=== PATIENT | female | born 1995 | race Caucasian/White ===

== ENCOUNTER 2019-01-17 15:53 | Emergency (ER) | payer OTHER ==
--- OUTSIDE RECORDS SUMMARY | 2019-01-17 16:14 | XMS REPORT | Continuity of Care Document ---
:1995 External Reference #:[id number] Author Name Araseli Watts MS, FEED GRINDER-C, CNM (transmitted by agent of provider Tyesha Chaney) Address [address] [place] [address] Care Team Providers Name Role Phone Judd Ferris-MD [place] - Obstetrics & Care Team Information Dynamotor Repairer [phone] Gynecology Deysi March MD - Internal Medicine Care Team Information Dynamotor Repairer Casey Inman MD - Obstetrics & Care Team Information Dynamotor Repairer [phone] Gynecology Problems Description No Information Available Social History Type Date Description Comments Sex Unknown Tobacco Use Start: Unknown current cigarette currently smoking x smoker 10 years. Smoking Status Reviewed: 01/11/19 current cigarette currently smoking x smoker 10 years. ETOH Use Currently consumes alcohol socially Tobacco Use Start: Unknown Patient is a current 1/2 ppd smoker, smokes every day Recreational Drug Use Current Drug User marijuana Allergies, Adverse Reactions, Alerts Description No Known Drug Allergies Medications Active Medications SIG Qnty Indications Ordering Date Provider Buspirone HCL take one tablet 60tabs F43.23 Deysi March, 09/04/2018 5mg Tablets by mouth twice MD a day for anxiety as needed Wellbutrin XL Take one every 30tabs F43.23 Jumana Marcha, 08/20/2018 150mg Tablets ER day MD 24HR Medroxyprogesterone Inject Once as Casey Inman MD Acetate Directed 150mg/ml Suspension Medications Administered in Office Medication SIG Qnty Indications Ordering Provider Date PPD Araseli Watts MS, 08/20/2018 Injection FEED GRINDER-C, CNM Immunizations Description No Information Available Vital Signs Date Vital Result Comment 01/11/2019 11:27am BP Systolic Sitting Right Arm 112 mmHg BP Diastolic Sitting Right Arm 60 mmHg Body Temperature 97.7 F Heart Rate 95 /min Respiratory Rate 18 /min Height 64.75 inches 5'4.75" Weight 149.00 lb BMI (Body Mass Index) 25.0 kg/m2 BSA (Body Surface Area) 1.74 m2 [place] body weight in kilograms 56 kg O2 % BldC Oximetry 98 % ra 09/04/2018 1:07pm BP Systolic Sitting Right Arm 110 mmHg BP Diastolic Sitting Right Arm 64 mmHg Body Temperature 98.2 F Heart Rate 88 /min Respiratory Rate 16 /min Height 64.75 inches 5'4.75" Weight 144.00 lb BMI (Body Mass Index) 24.1 kg/m2 BSA (Body Surface Area) 1.72 m2 [place] body weight in kilograms 56 kg O2 % BldC Oximetry 98 % Ra Results Test Acquired Date Facility Test Result H/L Range Note CBC 01/04/2019 [facility] White Blood 13.1 K/uL High 3.1-10.7 1 W/Automated [address] Count Diff [place], [place] [id number] [phone] Red Blood Count 4.83 M/uL Normal 3.90-5.40 Hemoglobin 13.5 gm/dL Normal 11.6-15.8 Hematocrit 41.6 % Normal 36.0-46.1 Mean Cell Volume 86.1 fl Normal 80.9-99.0 Mean Corpuscular HGB 28.0 pg Normal 25.9-32.7 Mean Corpuscular HGB Conc 32.5 g/dL Normal 30.8-34.3 Platelet Count 484 K/uL High 155-360 Red Cell Distri Width SD 40.0 fl Normal 36-47 Red Cell Distri Width %CV 12.9 % Normal 11.7-14.4 Mean Platelet Volume 9.7 fl Normal 8.9-12.4 Neut% 61.0 % Normal 40.4-72.8 Lymph % 27.2 % Normal 20.0-42.0 [place] % 7.5 % Normal 4.3-13.2 Eo% 3.0 % Normal 0.0-6.6 Bas% 0.6 % Normal 0.0-1.1 Immature Grans 0.7 % Normal 0.0-5.0 NRBC % 0.0 /100WBC < 10/ 100 WBC Neut# 8.01 K/uL High 1.8-7.0 Lymph # 3.57 K/uL Normal 1.0-4.0 [place] # 0.98 K/uL High 0.3-0.9 Eos # 0.40 K/uL Normal 0.0-0.5 Baso # 0.08 K/uL Normal 0.0-0.1 Immature Grans Absolute 0.09 K/uL NRBC # 0.00 K/uL CBC W/Automated 08/23/2018 [facility] White Blood 12.1 K/uL High 3.1-10.7 [address] [place] [address] [phone] Red Blood Count 4.60 M/uL Normal 3.90-5.40 Hemoglobin 12.9 gm/dL Normal 11.6-15.8 Hematocrit 38.9 % Normal 36.0-46.1 Mean Cell Volume 84.6 fl Normal 80.9-99.0 Mean Corpuscular HGB 28.0 pg Normal 25.9-32.7 Mean Corpuscular HGB Conc 33.2 g/dL Normal 30.8-34.3 Platelet Count 449 K/uL High 155-360 Red Cell Distri Width SD 41.7 fl Normal 36-47 Red Cell Distri Width %CV 13.5 % Normal 11.7-14.4 Mean Platelet Volume 9.6 fl Normal 8.9-12.4 Neut% 55.8 % Normal 40.4-72.8 Lymph % 33.1 % Normal 20.0-42.0 [place] % 8.3 % Normal 4.3-13.2 Eo% 1.9 % Normal 0.0-6.6 Bas% 0.4 % Normal 0.0-1.1 Immature Grans 0.5 % Normal 0.0-5.0 NRBC % 0.0 /100WBC < 10/ 100 WBC Neut# 6.76 K/uL Normal 1.8-7.0 Lymph # 4.01 K/uL High 1.0-4.0 [place] # 1.00 K/uL High 0.3-0.9 Eos # 0.23 K/uL Normal 0.0-0.5 Baso # 0.05 K/uL Normal 0.0-0.1 Immature Grans Absolute 0.06 K/uL NRBC # 0.00 K/uL Comprehensive 08/23/2018 [facility] Glucose 103 mg/dL Normal 74-106 Metabolic Panel [address] [place], [place] [id number] [phone] BUN 13 mg/dL Normal 7-18 Creatinine 0.8 mg/dL Normal 0.6-1.3 Glom Filtration Rate, Estimate >60 mL/min >60 If >60 mL/min >60 3 BUN/Creat 16.2 ratio Sodium 140 mmol/L Normal 136-145 Potassium 3.9 mmol/L Normal 3.5-5.1 Chloride 112 mmol/L High 98-107 Carbon Dioxide 20 mmol/L Low 21-32 Anion Gap 8 mEq/L Normal 8-16 Calcium 9.0 mg/dL Normal 8.5-10.1 Total Protein 8.2 g/dL Normal 6.4-8.2 Albumin 4.0 g/dL Normal 3.4-5.0 Globulin 4.2 g/dL Normal 1.9-4.3 Alb/Glob 1.0 ratio Bilirubin,Total 0.2 mg/dL Normal 0.2-1.0 Sgot/Ast 14 U/L Low 15-37 4 SGPT/Alt 49 U/L Normal 12-78 Alkaline Phosphatase 100 U/L Normal 45-117 Reflex add FT3? N Reflex add FT4? Y TSH Reflex 08/23/2018 [facility] Thyroid Stim 1.40 uIU/mL Normal 0.30-4.20 FT4 And/Or [address] Hormone FT3 [place] [address] [phone] Reflex add FT3? N Reflex add FT4? Y Laboratory 08/23/2018 [facility] Vitamin 42.2 30.0-100.0 5 test finding [address] D,25-Hydroxy ng/[place] [address] [phone] Vitamin B12 08/23/2018 [facility] Vitamin B12 359 Normal 193-9[address] pg/[place] [address] [phone] Folic Acid 7.8 ng/mL Normal 3.1-17.5 Reflex add FT3? N Reflex add FT4? Y 1 D72.829 2 Z00.00, F43.23 3 Note: Persistent reduction for 3 months or more in an eGFR <60 mL/min/1.73 m2 defines CKD. Patients with eGFR values >/=60 mL/min/1.73 m2 may also have CKD if evidence of persistent proteinuria is present. The original MDRD equation for estimated GFR is not valid for patients less than 18 years of age. Additional information may be found at www.kdoqi.org. 4 Values below the stated reference ranges of AST and ALT can be seen in normal populations. Clinical correlation is suggested. 5 Vitamin D deficiency has been defined by the [place] of [employer] and an Endocrine Society practice guideline as a level of serum 25-OH vitamin D less than 20 ng/mL (1,2). The Endocrine Society went on to further define vitamin D insufficiency as a level between 21 and 29 ng/mL (2). 1. IOM ([place] of [employer]). 2010. Dietary reference intakes for calcium and D. [place]: The National Academies Press. 2. Rajesh MF, Juanita SOSA, Alphonse SANDOVAL, et al. Evaluation, treatment, and prevention of vitamin D deficiency: an Endocrine Society clinical practice guideline. JCEM. 2010; 96(7):1911-30. Performed at: RN - [facility] [address] [id number] Time Piece Repairer: Rebecca Willson MD, Phone: [phone] Procedures Date Code Description Status 08/20/2018 77298 Brief Emotional/Behav Assessment W/ Scoring Doc Per Completed Standard Inst Medical Devices Description No Information Available Encounters Type Date Location Provider Dx Diagnosis Office Visit 09/04/2018 [facility], D72.829 Elevated white 1:00p Office MS Araseli, blood cell count, FEED GRINDER-C, CNM unspecified F43.23 Adjustment disorder with mixed anxiety and depressed mood Z71.6 Tobacco abuse counseling Office Visit 08/22/2018 3:30p Primary Care Nurse Internal Z11.1 Encounter for Office Med screening for respiratory tuberculosis Office Visit 08/20/2018 1:30p [facility], Z00.00 Encntr for general Office MS Araseli, adult medical exam FEED GRINDER-C, CNM w/o abnormal findings F43.23 Adjustment disorder with mixed anxiety and depressed mood Z11.1 Encounter for screening for respiratory tuberculosis Z71.6 Tobacco abuse counseling Assessments Date Code Description Provider 01/11/2019 F43.23 Adjustment disorder with mixed Gagen, Araseli, MS, FEED GRINDER- C, anxiety and depressed mood CNM 01/11/2019 D72.829 Elevated white blood cell count, Angeline Wattsline, MS, FEED GRINDER-C, unspecified CNM 01/11/2019 R53.83 Other fatigue Gagen, Araseli, MS, FEED GRINDER-C, CNM 01/11/2019 Z71.6 Tobacco abuse counseling Angeline Wattsline, MS, FEED GRINDER-C, CNM 09/04/2018 D72.829 Elevated white blood cell count, Angeline Wattsline, MS, FEED GRINDER-C, unspecified CNM 09/04/2018 F43.23 Adjustment disorder with mixed Gagjojo, Araseli, MS, FEED GRINDER- C, anxiety and depressed mood CNM 09/04/2018 Z71.6 Tobacco abuse counseling Araseli Watts, MS, FEED GRINDER-C, CNM 08/22/2018 Z11.1 Encounter for screening for Deysi March MD respiratory tuberculosis 08/22/2018 Z11.1 Encounter for screening for Nurse Internal Med respiratory tuberculosis 08/20/2018 Z00.00 Encounter for general adult medical Araseli Watts, MS , FEED GRINDER-C, examination without abnormal CNM findings 08/20/2018 F43.23 Adjustment disorder with mixed Gagjojo, Araseli, MS, FEED GRINDER- C, anxiety and depressed mood CNM 08/20/2018 Z11.1 Encounter for screening for Araseli Watts, MS, FEED GRINDER-C, respiratory tuberculosis CNM 08/20/2018 Z71.6 Tobacco abuse counseling Angeline Wattsline, MS, FEED GRINDER-C, CNM 08/17/2018 Z00.00 Encounter for general adult medical Araseli Watts, MS , FEED GRINDER-C, examination without abnormal CNM findings Plan of Treatment Future Appointment(s):07/15/2019 3:30 pm - Araseli Watts, MS, FEED GRINDER-C, CNM at [facility]/11/2019 - Araseli Watts, MS, FEED GRINDER-C, CNMF43.23 Adjustment disorder with mixed anxiety and depressed moodComments:--Discussed medication usage. While taking medication, if any adverse moods develop or side effects to call office.--Taking Buspirone HCL 5 mg take one tablet by mouth twice a day, Wellbutrin XL 150mg Take one every day --If any SI/HI develop, go to the ER --Advise to keep all appointments. --Advised to make counseling appointment--Adding on Buspirone is nnzisspP36.829 Elevated white blood cell count, unspecifiedComments:--WBC: 17.0 > 12.1 > 13.1R53.83 Other upfklgsZ09.6 Tobacco abuse counselingComments:--trying to quit down on smoking and marijuana. ---I highly encouraged patient to consider smokingcessation. Smoking is linked to a variety of health conditions such as hypertension, lung disease, as well as inflammatory disease. It is also linked to multiple cancers , not just lung cancer - it isalso implicated in breast, colon and skin cancer. -- Patient counseled for >5 minutes on smokingcessationAllFollow up:-- Return to office in 6 months. Please get labs 1 week prior to office visit. Functional Status Description No Information Available Mental Status Description No Information Available Referrals Description No Information Available
[2019-01-17 16:20] VITALS: BP 126/85
--- NOTE | 2019-01-17 16:44 | UC ---
Shoulder Pain HPI - HPI Summary HPI Summary: Patient is a 23-year-old female presenting with left shoulder pain 3 days. Patient states on Monday she lifted her 120 pound dog onto her left shoulder. Denies immediate pain at that time but believes that that is what caused her pain began Monday night. Notes continuous pain throughout the past couple days. Notes constant pain at rest but increased sharp pain with any movement. Notes pain shoots into her L upper chest and L side of neck with rapid movement of shoulder. Denies any numbness or tingling. Denies shortness breath and wheezing. Denies nausea or vomiting. Denies any swelling or bruising. Patient notes that he does feel better when she has her arm placed over her abdomen and flexed position. - History of Current Complaint Chief Complaint: UCUpperExtremity Stated Complaint: LEFT SHOULDER INJURY Hx Obtained From: Patient Hx Last Menstrual Period: on depo injections Onset/Duration: Gradual Onset, Lasting Days Timing: Constant Severity Initially: Mild Severity Currently: Moderate Pain Intensity: 6 Pain Scale Used: 0-10 Numeric - Allergies/Home Medications Allergies/Adverse Reactions: Allergies Allergy/AdvReac Type Severity Reaction Status Date / Time No Known Allergies Allergy Verified 01/17/19 16:14 Home Medications: Home Medications Bupropion XL* [Wellbutrin XL *] 1 tab DAILY 01/17/19 [History Confirmed 01/17/19 ] medroxyPROGESTERone ACETATE* [DEPO-Provera*] 1 syr ONCE 01/17/19 [History Confirmed 01/17/19] PMH/Surg Hx/FS Hx/Imm Hx Previously Healthy: Yes - Surgical History Surgical History: Yes Surgery Procedure, Year, and Place: D&C, 2014; [place] Te[place], 2011; T&A, 2011. C -section, Nov 2017. Gallbladder, 2017 - Family History Known Family History: Positive: Hypertension, Diabetes, Non-Contributory - Social History Occupation: Employed Full-time Alcohol Use: None Substance Use Type: None Smoking Status (MU): Light Every Day Tobacco Smoker Type: Cigarettes Amount Used/How Often: 3/4 PPD Length of Time of Smoking/Using Tobacco: 11 Years Have You Smoked in the Last Year: Yes Household Exposure Type: Cigarettes - Immunization History Most Recent Influenza Vaccination: Not the 2014/2015 Season Most Recent Tetanus Shot: February 2015 Review of Systems All Other Systems Reviewed And Are Negative: Yes Constitutional: Positive: Negative Skin: Negative: Bruising Respiratory: Positive: Negative Cardiovascular: Positive: Negative. Negative: Chest Pain Musculoskeletal: Positive: Arthralgia - L shoulder, Decreased ROM - R shoulder abduction, Myalgia - L upper chest and neck muscle pain Neurological: Negative: Paresthesia, Numbness Physical Exam Triage Information Reviewed: Yes Appearance: Well-Appearing, No Pain Distress, Well-Nourished Vital Signs: Initial Vital Signs Temp 98.4 F 01/17/19 16:14 Pulse 102 01/17/19 16:14 Resp 16 01/17/19 16:14 BP 126/85 01/17/19 16:14 Pulse Ox 100 01/17/19 16:14 Vital Signs Reviewed: Yes Eyes: Positive: Conjunctiva Clear ENT: Positive: Hearing grossly normal Neck: Positive: Supple, Nontender Respiratory Exam: Normal Respiratory: Positive: Lungs clear, Normal breath sounds, No respiratory distress Cardiovascular Exam: Normal Cardiovascular: Positive: RRR, Pulses Normal - strong radial pulses b/l, Brisk Capillary Refill - <2 sec Musculoskeletal: Positive: Strength Intact, No Edema, ROM Limited @ - L shoulder abduction and flexion d/t pain, Other: - tenderness to palpation of L pectoralis and L trapezius muscle Neurological Exam: Other - sensation grossly intact Neurological: Positive: Alert Psychological: Positive: Age Appropriate Behavior Skin Exam: Normal - no erythema or ecchymosis Diagnostics - Radiology L shoulder Radiology Interpretation Completed By: Radiologist Summary of Radiographic Findings: Report: #. Negative for fracture. #. Normal acromioclavicular and glenohumeral joint alignment. #. No arthropathic change evident. #. Unremarkable soft tissue contours. Negative for calcific tendinopathy. IMPRESSION: #. Negative radiographic exam of the LEFT shoulder. Shoulder Course/Dx - Course Course Of Treatment: Discussed negative shoulder x-rays with patient and likely muscle strain. Instructed to continue symptomatic treatment including use of sling and Flexeril. Instructed to follow up with PCP or orthopedics if pain persists. Patient was understanding and agreed with treatment plan. - Differential Dx/Diagnosis Differential Diagnosis/HQI/PQRI: Arthritis, Rotator Cuff Injury, Sprain, Strain Provider Diagnosis: Sprain of shoulder, left Discharge ED - Sign-Out/Discharge Documenting (check all that apply): Patient Departure All imaging exams completed and their final reports reviewed: Yes - Discharge Plan Condition: Stable Disposition: HOME Prescriptions: Cyclobenzaprine TAB* [Flexeril 10 MG TAB*] 10 mg PO BEDTIME PRN #4 tab PRN Reason: Spasms - Muscle Patient Education Materials: Shoulder Sprain (ED) Forms: *Work Release Referrals: Deysi March MD [Primary Care Provider] - If Needed [facility] [Outside] - If Needed Additional Instructions: As discussed, your xrays were normal today. Take Flexeril as prescribed for muscle spasms. Rest, ice, heat, and take ibuprofen as directed to help alleviate pain symptoms. Refrain from strenuous physical activity until pain has resolved. If symptoms persist or worsen, follow up with your PCP or the orthopedics referral listed below. - Billing Disposition and Condition Condition: STABLE Disposition: Home - Attestation Statements Provider Attestation: I was available for consult. This patient was seen by the [facility]. The patient was not presented to, seen by, or examined by me. -Jia
== END 2019-01-17 17:56 | disposition home or self-care (01) ==
LOC: UCCORT 15:53
DX: S43.402A Unspecified sprain of left shoulder joint, initial encounter (principal); F17.210 Nicotine dependence, cigarettes, uncomplicated; X50.0XXA Overexertion from strenuous movement or load, initial encounter; Y92.9 Unspecified place or not applicable
CPT/HCPCS: 99212; G0463